=== PATIENT | male | born 1980 | race Caucasian/White ===

== ENCOUNTER 2017-01-19 14:53 | Emergency (ER) | payer OTHER ==
[2017-01-19 15:51] LABS: BILIRUBIN NEGATIVE (NEGATIVE); BLOOD NEGATIVE Ery/uL (NEGATIVE); CLARITY CLEAR (CLEAR); COLOR YELLOW (YELLOW); GLUCOSE (U) NORMAL (NORMAL); KETONE (U) NEGATIVE (NEGATIVE); LEUKOCYTES NEGATIVE Leu/uL (NEGATIVE); NITRITE NEGATIVE (NEGATIVE); PROTEIN NEGATIVE (NEGATIVE); UROBILINOGEN 0.2 mg/dL (0.2-1.0); pH 5.5 (5.0-9.0)
[2017-01-19 16:05] LABS: AMPHETAMINES NEGATIVE (NEGATIVE); BARBITURATES NEGATIVE (NEGATIVE); BENZODIAZEPINES NEGATIVE (NEGATIVE); COCAINE POSITIVE (NEGATIVE); MARIJUANA (THC) NEGATIVE (NEGATIVE); METHADONE NEGATIVE (NEGATIVE); TRICYCLIC ANTIDEPRESSANT NEGATIVE (NEGATIVE)
[2017-01-19 16:25] LABS: BASOPHIL 0.1 % (0-2); HGB 15.4 g/dl (13.2-18.0); LYMPHOCYTE 27.3 % (15-48); MCH 30.7 pg (25.0-31.0); MCV 87.8 fL (78.0-100.0); MONOCYTE 12.1 % (0-12); MPV 10.6 fL (6.0-9.5); NEUTROPHIL 56.5 % (41-80); PLT 270 K/uL (150-400); RBC 5.01 M/uL (4.70-6.00); RDW 13.2 % (11.5-14.0); WBC 6.7 K/uL (4.0-10.5)
[2017-01-19 16:45] LABS: POTASSIUM 4.2 mmol/L (3.5-5.1)
== END 2017-01-19 17:08 | disposition home or self-care (01) ==
LOC: FER 14:53
PROVIDERS: Nurse Practitioner
DX: F41.0 Panic disorder [episodic paroxysmal anxiety] (principal); F14.10 Cocaine abuse, uncomplicated; R07.9 Chest pain, unspecified; F17.210 Nicotine dependence, cigarettes, uncomplicated
CPT/HCPCS: 36415; 80048; 80305; 81003; 85025; 93005